=== PATIENT | female | born 1985 | race Two or more races ===

== ENCOUNTER 2017-08-31 00:52 | Emergency (ER) | payer OTHER ==
[2017-08-31] VITALS (7 sets, daily range): BP systolic 118–128; BP diastolic 75–89
[~2017-08-31] VITALS: Ht 170.2 cm; Wt 99.8 kg
[2017-08-31] MEDS ORDERED: LORazepam Inj 2mg/ml 1ml IM ONE (01:15)
[2017-08-31] MEDS ORDERED: DiphenhydrAMINE 50mg/ml Inj IM ONE (01:15)
[2017-08-31] MEDS ORDERED: Haloperidol 5mg/ml Inj IM ONE ×2 (01:15→02:15)
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
[2017-08-31 02:15] LABS: LYMPHOCYTES % (AUTO) 16.5 % (20.0-45.0); MEAN CORPUSCULAR HEMOGLOBIN 29.8 PG (27.0-31.0); MEAN CORPUSCULAR HGB CONC 32.7 G/DL (32.0-36.0); MEAN CORPUSCULAR VOLUME 91 FL (80-99); MEAN PLATELET VOLUME 6.8 FL (6.5-10.1); NEUTROPHILS % (AUTO) 73.5 % (45.0-75.0); PLATELET COUNT 280 K/UL (150-450); RED BLOOD COUNT 5.12 M/UL (4.20-5.40); RED CELL DISTRIBUTION WIDTH 12.3 % (11.6-14.8); WHITE BLOOD COUNT 13.1 K/UL (4.8-10.8)
[2017-08-31 02:40] LABS: ALANINE AMINOTRANSFERASE 30 U/L (12-78); ALCOHOL < 3 mg/dL; ANION GAP 19 mmol/L (5-15); ASPARTATE AMINO TRANSFERASE 20 U/L (15-37); CALCIUM 9.5 MG/DL (8.5-10.1); CARBON DIOXIDE 20 MMOL/L (21-32); CHLORIDE 100 MMOL/L (98-107); CREATININE 1.8 MG/DL (0.55-1.30); GLOMERULAR FILTRATION RATE 32.6 mL/min (>60); SODIUM 139 MMOL/L (136-145); THYROID STIMULATING HORMONE 1.706 uiU/mL (0.360-3.740); TOTAL PROTEIN 8.2 G/DL (6.4-8.2)
[2017-08-31 02:45] LABS: ACETAMINOPHEN < 10 MCG/ML (10-30)
[2017-08-31 04:08] LABS: APPEARANCE,URINE CLEAR; KETONES,URINE 2+ (NEGATIVE); LEUKOCYTE ESTERASE ,URINE NEGATIVE (NEGATIVE); NITRITE,URINE NEGATIVE (NEGATIVE); PH,URINE 6 (4.5-8.0); PROTEIN,URINE 2+ (NEGATIVE); UROBILINOGEN,URINE NORMAL MG/DL (0.0-1.0)
[2017-08-31 04:25] LABS: BACTERIA,URINE OCCASIONAL /HPF; FINE GRANULAR CASTS,URINE 0-2 /LPF; RBC,URINE 0-2 /HPF (0 - 2); SQUAMOUS EPITHELIAL CELL,UR OCCASIONAL /LPF (NONE/OCC); WBC,URINE 0-2 /HPF (0 - 2)
[2017-08-31 04:26] LABS: MUCUS,URINE FEW /LPF (NONE/OCC)
[2017-08-31 05:04] LABS: ABG PCO2 47.4 mmHg (35.0-45.0)
[2017-08-31 05:05] LABS: ABG BASE EXCESS 3.3
[2017-08-31 05:06] LABS: ABG ALLEN TEST POSITIVE
[2017-08-31 06:49] LABS: ALANINE AMINOTRANSFERASE 29 U/L (12-78); ALBUMIN/GLOBULIN RATIO 1.1 (1.0-2.7); ANION GAP 11 mmol/L (5-15); ASPARTATE AMINO TRANSFERASE 38 U/L (15-37); CALCIUM 8.6 MG/DL (8.5-10.1); CARBON DIOXIDE 25 MMOL/L (21-32); CHLORIDE 106 MMOL/L (98-107); CREATININE 1.1 MG/DL (0.55-1.30); GLOMERULAR FILTRATION RATE 57.6 mL/min (>60); POTASSIUM 3.2 MMOL/L (3.5-5.1); SODIUM 142 MMOL/L (136-145); TOTAL PROTEIN 7.6 G/DL (6.4-8.2)
[2017-08-31] MEDS ORDERED: LEXAPRO10 MG ORAL (14:44)
--- NOTE | 2017-09-01 17:23 | Cardiology Report ---
APPROVED REPORT EKG Measurement Heart [id number] abnormality Abnormal ECG
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
== END 2017-08-31 15:00 | disposition home or self-care (01) ==
LOC: EDBD 00:52 → EMR 01:23 → EDBD 01:23 → EMR 15:00
DX: R41.82 Altered mental status, unspecified (principal); F29 Unspecified psychosis not due to a substance or known physiological condition; N28.9 Disorder of kidney and ureter, unspecified; F43.10 Post-traumatic stress disorder, unspecified; E86.0 Dehydration; E03.9 Hypothyroidism, unspecified
CPT/HCPCS: 36415; 36600; 80053; 80307; 81003; 81025; 82550; 82803; 84443; 85025; 93005; 96372; 96375; 99284; G0480; J1200; J1630; 80329